=== PATIENT | female | born 1950 | race Caucasian/White ===

== ENCOUNTER 2022-02-27 11:08 | Emergency (ER) | payer MEDICAID, OTHER ==
[~2022-02-27] VITALS: Ht 147.3 cm; Wt 65.8 kg
[2022-02-27 11:14] VITALS: BP 164/78
--- NOTE | 2022-02-27 11:22 | NUR ---
72/ Y/O FEMALE BIB DAUGHTER C/O RIGHT SIDED BODY PAIN AND PAIN UPON INSPIRATION 6/10 S/P FALLING THIS MORNING. STATED THAT SHE WAS WALKING DOWN THE RHODES AND TRIPPED. NOTED WITH BRUISES ON THE RIGHT HAND, RIGHT ARM AND RIGHT HIP. DENIES HEAD/NECK INJURY OR LOC, DENIES USE OF BLOOD THINNERS. PMH: HTN, RIGHT KIDNEY REMOVED 2020 FOR "SHRINKING" NKA
--- NOTE | 2022-02-27 11:22 | NUR ---
PT AMBULATED TO BED 2
--- NOTE | 2022-02-27 11:41 | NUR ---
PT AMBULATED TO BATHROOM WITH STEADY GAIT WITH CANE
--- NOTE | 2022-02-27 12:28 | NUR ---
DR ROWLAND AT BEDSIDE FOR FURTHER EVAL
[2022-02-27] MEDS ORDERED: ACETAMINOPHEN EXTRA STRENGTH 500 MG TAB PO ONE (12:35)
[2022-02-27 12:56] LABS: BASOPHILS # (AUTO) 0.1 K/uL (0.00-0.22); BASOPHILS % (AUTO) 1.3 % (0.0-2.0); EOSINOPHILS % (AUTO) 0.5 % (0.0-4.0); HEMATOCRIT 37.1 % (36-48); HEMOGLOBIN 12.3 g/dL (12.0-16.0); LYMPHOCYTES # (AUTO) 1.6 K/uL (2.5-16.5); LYMPHOCYTES % (AUTO) 20.3 % (20.5-51.1); MEAN CORPUSCULAR HEMOGLOBIN 28 pg (27-31); MEAN CORPUSCULAR HGB CONC 33 g/dL (33-37); MEAN CORPUSCULAR VOLUME 83.5 fL (80-94); MONOCYTES # (AUTO) 0.4 K/uL (0.8-1.0); MONOCYTES % (AUTO) 5.3 % (1.7-9.3); NEUTROPHILS # (AUTO) 5.8 K/uL (1.8-7.7); NEUTROPHILS % (AUTO) 72.6 % (42.2-75.2); PLATELET COUNT (AUTO) 248 K/uL (140-450); RED BLOOD CELL COUNT(AUTO) 4.44 MIL/uL (4.20-5.40); RED CELL DISTRIBUTION WIDTH 15.3 % (11.6-13.7)
[2022-02-27 13:08] LABS: ALBUMIN 3.8 g/dL (3.4-5.0); ANION GAP 11.2 (8-16); ASPARTATE AMINOTRANSFERASE 15 U/L (15-37); CARBON DIOXIDE 27.9 mmol/L (21-32); CHLORIDE 105 mmol/L (98-107); CREATININE 0.9 mg/dL (0.6-1.3); GLUCOSE 108 mg/dL (74-106); POTASSIUM 5.1 mmol/L (3.5-5.1); SODIUM SERUM 139 mmol/L (136-145); TOTAL BILIRUBIN 0.6 mg/dL (0.0-1.0); UREA NITROGEN, BLOOD 22 mg/dL (7-18)
[2022-02-27 13:18] VITALS: BP 163/75
--- NOTE | 2022-02-27 13:22 | NUR ---
PT BROUGHT TO XRAY VIA
[2022-02-27 13:43] LABS: APPEARANCE,URINE SL CLOUDY (CLEAR); BILIRUBIN,URINE NEGATIVE (NEGATIVE); BLOOD, URINE 1+ (NEGATIVE); COLOR,URINE YELLOW (YELLOW); LEUKOCYTE ESTERASE ,URINE 2+ (NEGATIVE); NITRITE, URINE NEGATIVE (NEGATIVE); PH,URINE 6.5 (5.0-9.0); UGLUCOSE NEGATIVE (NEGATIVE)
--- NOTE | 2022-02-27 13:46 | NUR ---
AMBULATED TO BATHROOM WITH STEADY GAIT
[2022-02-27 14:01] LABS: OTHER CASTS, URINE None Seen /LPF (None Seen)
[2022-02-27] MEDS ORDERED: NITR100C7 PO ×2 (14:16→14:31)
[2022-02-27] MEDS ORDERED: ACET-10509 PO ×2 (14:16→14:31)
--- NOTE | 2022-02-27 14:35 | NUR ---
Patient discharged with v/s stable. Written and verbal after care instructions given and explained. Patient alert, oriented and verbalized understanding of instructions. Ambulatory with steady gait. All questions addressed prior to discharge. ID band removed. Patient advised to follow up with PMD. Rx of TYLENOL EXTRA STRENGTH, MACROBID given. Patient educated on indication of medication including possible reaction and side effects. Opportunity to ask questions provided and answered.
--- NOTE | 2022-03-04 12:02 | NUR ---
LATE ENTRY. RECEIVED POSITIVE URINE CULTURE. PT REPORTS RESOLUTION OF S/S. DISCREPANCY LOG SIGNED BY DR SHEARER, TREATMENT APPROPRIATE. FORM PLACED IN BINDER.
== END 2022-02-27 14:35 | disposition home or self-care (01) ==
LOC: MED 11:08
DX: R07.89 Other chest pain (principal); N39.0 Urinary tract infection, site not specified; K21.9 Gastro-esophageal reflux disease without esophagitis; I10 Essential (primary) hypertension; Z79.899 Other long term (current) drug therapy; Z90.49 Acquired absence of other specified parts of digestive tract; Z98.890 Other specified postprocedural states; W19.XXXA Unspecified fall, initial encounter; Y93.89 Activity, other specified; Y92.89 Other specified places as the place of occurrence of the external cause; Y99.8 Other external cause status
CPT/HCPCS: 36415; 71045; 73060; 73502; 80053; 81001; 81002; 85025; 87086; 99284